=== PATIENT | male | born 2000 | race Asian ===

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

== ENCOUNTER 2019-10-09 18:43 | Emergency (ER) | payer SELFPAY | END 2019-10-09 20:27 | disposition left against medical advice (07) | LOC: EMS 18:44 | DX: M79.10 Myalgia, unspecified site (principal); Z53.21 Procedure and treatment not carried out due to patient leaving prior to being seen by health care provider ==

== ENCOUNTER 2019-10-09 22:06 | Emergency (ER) | payer SELFPAY ==
[~2019-10-09] VITALS: Ht 180.3 cm; Wt 68.2 kg
[2019-10-09] MEDS ORDERED: ONDANSETRON HCL 4 MG/2 ML VIAL IVP ONE (23:30)
[2019-10-09] MEDS ORDERED: LIDOCAINE 5% TRANSDERMAL PATCH TD ONE (23:30)
[2019-10-09] MEDS ORDERED: ACETAMINOPHEN 325 MG TABLET PO ONE (23:30)
[2019-10-09] MEDS ORDERED: IBUPROFEN 600 MG TABLET ONE (23:40)
[2019-10-10] MEDS ORDERED: IBUPROFEN 400 MG TABLET PO ONE
[2019-10-10 01:37] VITALS: BP 119/68
== END 2019-10-10 01:35 | disposition home or self-care (01) ==
LOC: EMS 22:07
DX: S13.4XXA Sprain of ligaments of cervical spine, initial encounter (principal); M54.2 Cervicalgia; M79.10 Myalgia, unspecified site; F12.90 Cannabis use, unspecified, uncomplicated; V49.9XXA Car occupant (driver) (passenger) injured in unspecified traffic accident, initial encounter; Y93.89 Activity, other specified; Y92.89 Other specified places as the place of occurrence of the external cause; Y99.8 Other external cause status

== ENCOUNTER 2020-04-11 13:20 | Emergency (ER) | payer MEDICAID ==
[~2020-04-11] VITALS: Ht 175.3 cm; Wt 61.4 kg
[2020-04-11 14:38] LABS: AMPHET/METH SCREEN,URINE NEGATIVE (NEGATIVE); BARBITURATE SCREEN, URINE NEGATIVE (NEGATIVE); BENZODIAZEPINES SCREEN,URINE NEGATIVE (NEGATIVE); CANNABINOID SCREEN,URINE NEGATIVE (NEGATIVE); COCAINE SCREEN,URINE NEGATIVE (NEGATIVE); METHADONE SCREEN, URINE NEGATIVE (NEGATIVE); OPIATE SCREEN,URINE NEGATIVE (NEGATIVE)
[2020-04-11 14:42] LABS: PHENCYCLIDINE SCREEN,URINE NEGATIVE (NEGATIVE)
[2020-04-11 15:03] LABS: BASOPHILS % (AUTO) 0.9 % (0.0-2.0); EOSINOPHILS % (AUTO) 1.5 % (1.0-6.0); HEMATOCRIT 38.7 % (41-53); HEMOGLOBIN 12.4 g/dL (13.5-17.5); LYMPHOCYTES # (AUTO) 1.3 K/uL (1.0-4.8); LYMPHOCYTES % (AUTO) 28.3 % (22.0-44.0); MEAN CORPUSCULAR HGB CONC 32.2 G/dL (31.0-37.0); MEAN CORPUSCULAR VOLUME 78 fL (80-100); MONOCYTES # (AUTO) 0.3 K/uL (0.1-1.0); MONOCYTES % (AUTO) 6.2 % (2.0-9.0); NEUTROPHILS # (AUTO) 2.9 K/uL (1.8-7.7); NEUTROPHILS % (AUTO) 63.1 % (40.0-70.0); PLATELET COUNT (AUTO) 227 K/uL (150-450); RED BLOOD CELL COUNT(AUTO) 4.97 MIL/uL (4.50-5.90); RED CELL DISTRIBUTION WIDTH 14.6 % (11.5-14.5)
[2020-04-11 15:16] LABS: ANION GAP 4 mmol/L (8-16); CALCIUM, TOTAL 9.2 mg/dL (8.8-10.5); CARBON DIOXIDE 30 mmol/L (22-29); CHLORIDE 104 mmol/L (98-107); CREATININE 0.94 mg/dL (0.60-1.30); GLOMERULAR FILTR. RATE CALC > 60 mL/min (>60); GLUCOSE,RANDOM 97 mg/dL (70-110); POTASSIUM 4.2 mmol/L (3.5-5.1); SODIUM SERUM 138 mmol/L (136-145); UREA NITROGEN, BLOOD 23 mg/dL (7-18)
[2020-04-11 15:22] LABS: ALANINE AMINOTRANSFERASE 28 U/L (12-78); ALKALINE PHOSPHATASE 50 U/L (46-116); ASPARTATE AMINOTRANSFERASE 17 U/L (15-37); BILIRUBIN,TOTAL 0.3 mg/dL (0.1-1.0); TOTAL PROTEIN, SERUM 7.1 g/dL (6.4-8.2)
[2020-04-11 16:37] VITALS: BP 117/63
== END 2020-04-11 16:49 | disposition home or self-care (01) ==
LOC: EMS 13:30
DX: F12.10 Cannabis abuse, uncomplicated (principal)
CPT/HCPCS: 36415; 71045; 73060; 80053; 80307; 85025; 99284; 99406; G0480

== ENCOUNTER 2024-05-04 22:00 | Emergency (ER) | payer OTHER ==
[~2024-05-04] VITALS: Ht 175.3 cm; Wt 21.6 kg
[~2024-05-04 22:00] MED LIST: ACET-66 PO; GUAIFDM PO; IBUP-1492 PO; IBUP-1554 PO
[2024-05-04 22:04] VITALS: TEMP 100.6
[2024-05-05] VITALS: BP 108/53
[2024-05-05] MEDS ORDERED: CefTRIAXone 1 GM/DEXTROSE 50 ML IV ONE (00:15)
[2024-05-05] MEDS: ONDANSETRON HCL 4 MG TABLET PO ONE (00:36)
[2024-05-05] MEDS: AZITHROMYCIN 500 MG TABLET PO ONE (00:36)
[2024-05-05] MEDS: LIDOCAINE/PF 1% 2 ML VIAL IM ONE (00:37)
[2024-05-05] MEDS: CefTRIAXone SODIUM 1 GM/VIAL IM ONE (00:37)
[2024-05-05] MEDS ORDERED: 0.9% SODIUM CHLORIDE 5 ML NEB SOLUTION NEB ONE (00:57)
[2024-05-05 00:58] VITALS: PULSE 80; RESP 20; O2SAT 99
[2024-05-05] MEDS: ALBUTEROL SULFATE 2.5 MG/0.5 ML NEB SOLUTION NEB ONE (00:58)
[2024-05-05] MEDS ORDERED: ALBU18HF12 IH (01:03)
[2024-05-05] MEDS ORDERED: AZIT250T9 PO (01:03)
[2024-05-05 01:13] VITALS: PULSE 81; RESP 20; O2SAT 100
== END 2024-05-05 03:08 | disposition home or self-care (01) ==
LOC: EMS 22:01
DX: J18.9 Pneumonia, unspecified organism (principal); F17.210 Nicotine dependence, cigarettes, uncomplicated
CPT/HCPCS: 99283; 71045; 94640; 96372; J0456; J0696; J3490; Q0162; J7613

== ENCOUNTER 2024-05-23 23:11 | Emergency (ER) | payer OTHER ==
[~2024-05-23] VITALS: Ht 175.3 cm; Wt 79.5 kg
[~2024-05-23 23:11] MED LIST changes: +ALBU18HF12 IH
[2024-05-23 23:16] VITALS: BP 120/61; PULSE 89; RESP 16; TEMP 98.5; O2SAT 98
[2024-05-24] MEDS ORDERED: IBUP-1492 PO (02:05)
[2024-05-24] MEDS: OxyCODONE HCL/ACETAMINOPHEN 5-325 MG TABLET PO ONE (02:06)
[2024-05-24] MEDS: IBUPROFEN 600 MG TABLET PO ONE (02:06)
== END 2024-05-24 02:28 | disposition home or self-care (01) ==
LOC: EMS 23:12
DX: S93.401A Sprain of unspecified ligament of right ankle, initial encounter (principal); F17.210 Nicotine dependence, cigarettes, uncomplicated; X50.1XXA Overexertion from prolonged static or awkward postures, initial encounter; Y93.89 Activity, other specified; Y92.89 Other specified places as the place of occurrence of the external cause; Y99.8 Other external cause status
CPT/HCPCS: 99283